=== PATIENT | male | born 1945 | race Caucasian/White ===

== ENCOUNTER 2017-03-02 02:53 | Inpatient (IN) | payer BC, MEDICARE, OTHER ==
[~2017-03-02] VITALS: Ht 177.8 cm; Wt 109.9 kg
--- NOTE | ~2017-03-02 | ECH ---
Transthoracic Echocardiography Report (TTE) Demographics Patient Name BRENT SEALS Date of Study 03/03/2017 Patient Number [id number] Visit Number [id number] Date of 1945 Room Number 302 Accession Number [id number] Gender Male Age 72 year(s) Referring Angie Deutsch MD Riding Double Cherri Cummings Physician RDCS Physician Interpreting Kathy Lentz MD Mission Manager Physician Supervising Ordering Physician Angie Deutsch MD, MD/MLP Nurse Stress Engineering Systems Analyst Conclusions Summary Technically adequate exam. The estimated left ventricular ejection fraction is 60%. Trivial tricuspid regurgitation by color Doppler. Normal pulmonary pressures. Procedure Type of Study TTE procedure:Echo Complete SF. Procedure Date Date: 03/03/2017 Start: 07:36 AM Technical Quality: Adequate visualization Indications:Pulmonary embolus, Coronary artery disease and Hypertension. Additional Indications:History of IN/stents Appropriate Use Criteria: 9 Height: 70 inches Weight: 238 pounds BSA: 2.25 m Rhythm: NSR HR: 85 bpm BP: 98/64 mmHg Allergies - Morphine. - Other:(Statins & A Reductase inhibitors). M-Mode/2D Measurements LV Diastolic Dimension: 4.59 cm LV Systolic Dimension: 2.48 cm LV Septum Diastolic: 1 cm LV PW Diastolic: 1.01 cm AO Root Dimension: 3.18 cm Cardiac Output: 5.42 l/min LA Dimension: 4.11 cm Cardiac Index: 2.41 l/min*m RV Diastolic Dimension: 3.48 cm LA volume index: 26 ml/m LVOT: 2.01 cm LVOT VTI: 20.11 cm RV Base: 4 cm LV Stroke volume: 63.78 ml RV Mid: 2.3 cm LV Stroke volume index: 28.35 ml/m TAPSE: 2.2 cm TDI-S': 18 cm/s Doppler Measurements AV Peak Velocity: 1.3 m/s MV Peak E-Wave: 0.77 m/s AV Peak Gradient: 6.76 mmHg MV Peak A-Wave: 0.6 m/s AV Mean Gradient: 3.68 mmHg MV E/A Ratio: 1.3 LVOT Peak Velocity: 1.22 m/s MV P1/2t: 52.1 msec AV Area (Continuity):3.13 cm MV Deceleration Time: 165.8 msec TR Velocity:2.71 m/s MV Area (PHT): 4.23 cm TR Gradient:29.38 mmHg PV Peak Velocity: 0.87 m/s Estimated RAP:3 mmHg PV Peak Gradient: 3.05 mmHg Estimated RVSP: 32 mmHg Estimated PASP: 32.38 mmHg E' Septal Velocity: 0.1 m/s A' Septal Velocity: 0.11 m/s E' Lateral Velocity: 0.14 m/s A' Lateral Velocity: 0.1 m/s RA Area: 17.48 cm Findings Left Ventricle Normal left ventricle size and function. Diastolic assessment reveals normal relaxation. Right Ventricle Normal right ventricle structure and function. Left Atrium Normal left atrial size. Right Atrium Normal right atrial size. Mitral Valve Normal mitral valve structure and function. Trivial mitral regurgitation by color Doppler. Aortic Valve The aortic valve is mildly sclerotic. Tricuspid Valve Normal tricuspid valve structure and function. Trivial tricuspid regurgitation by color Doppler. Normal pulmonary pressures. Pulmonic Valve Normal pulmonic valve structure and function. Trivial pulmonic valve regurgitation by color Doppler. Pericardial Effusion No evidence of pericardial effusion. Miscellaneous Visualized portions of the aortic root and ascending aorta appear normal in size. Pleural Effusion No evidence of pleural effusion. Signature
--- NOTE | 2017-03-02 07:06 | ER ---
ADMIT: 03/02/2017 RM/LOC: 302 [facility] MR#: [id number] [address] [facility] [address] [place], [place] [address] BRENT SEALS [address] [place] [address] Emergency Room Report SEX: M AGE: 72 : 1945 DATE: 03/02/2017 CHIEF COMPLAINT: Chest pain. HISTORY OF PRESENT ILLNESS: The patient is a 72-year-old male with coronary artery disease, status post right coronary artery bare metal stent in 2008, subsequent heart cath in 2014 showed patent stent and nonobstructive coronary artery disease. States he awoke with left chest discomfort associated with pleuritic cough. Denies any hemoptysis, fevers, chills, or previous DVT or PE. Does admit to right leg pain and swelling without injury. PAST MEDICAL HISTORY: ILLNESSES: Coronary artery disease, status post inferior wall LA in 2008, hypertension, hyperlipidemia, TIA, connective tissue disease. Followed by Dr. Levin. Dupuytren's contracture in the right hand, colon polyps. OPERATIONS: PCI and bare metal stent of right coronary artery in 2008, heart cath in 2014 showing patent stent, bilateral inguinal hernia x2, right Dupuytren's release, left hydrocelectomy, left ACL repair. ALLERGIES: MORPHINE, STATINS. MEDICATIONS: Please see nurse's MAR. SOCIAL HISTORY: . Past smoker, quit in 2008 with 41-pack year history. No illicit drugs or alcohol. FAMILY HISTORY: Premature coronary artery disease. No aneurysms, dissections or sudden syndrome. REVIEW OF SYSTEMS: Stress SPECT exam shows inferior hypokinesis with EF of 76% in September 2015. Otherwise, 12-point review of systems negative for all other systems, illnesses, or operations except as outlined above. PHYSICAL EXAMINATION: VITAL SIGNS: Temp 97.4, pulse 82, respirations 21, BP 104/60, SaO2 of 91%. GENERAL: Anxious, moderate distress, non-diaphoretic without jaundice or icterus. HEENT: Normocephalic. No evidence of epistaxis, rhinorrhea, or otorrhea. NECK: Supple without lymphadenopathy or thyromegaly. CHEST: Clear. Breath sounds equal. HEART: Regular rate and rhythm without murmur, gallop, or edema. ABDOMEN: Soft, nontender, nondistended without mass or megaly. Bowel sounds hypoactive. EXTREMITIES: Negative Homans sign. NEURO: EOMI, PERRLA. No evidence of drift, dysarthria, or ataxia. Gait not assessed. MENTAL STATUS: Alert, oriented, anxious without delusions, hallucinations, or abnormal thought content. MEDICAL DECISION MAKING: EKG on arrival showed sinus rhythm with low voltage, ADMIT: 03/02/2017 RM/LOC: 302 [facility] MR#: [id number] [address] [address] [place] [address] Emergency Room Report SEX: M AGE: 72 : 1945 unchanged from EKG of 10/25/2015. Chest x-ray negative. CTA chest shows bilateral pulmonary emboli. Normal CBC, CMP, except for potassium of 5.0 with moderate hemolysis. CK 206, MB 3.8, troponin less than 0.015. D-dimer 3.25, CRP 3.77. The patient was given on arrival aspirin and nitroglycerin with no change. GI cocktail, Protonix with marked improvement. Upon return from CT, the patient was then fully heparinized. Discussed the case with Dr. Adams and Dr. Reyes. Dr. Reyes gave orders to nursing staff. Due to the patient's presentation, findings, and intervention, 30 minutes of critical care is warranted. DIAGNOSES: 1. Atypical chest pain associated with known coronary artery disease, status post PCI and bare metal stent of right coronary artery in 2008, subsequent heart cath in 2014 shows patent stent. 2. Bilateral pulmonary emboli. 3. Mixed connective tissue disorder, followed by Dr. Levin. 4. Right leg pain, suspect deep vein thrombosis. RECOMMENDATION: Admit inpatient ICU for Dr. Arrednodo. ADMISSION CONDITION: Fair. Patient is a full code. Timur Miller MD/ luz JOB #: [id number] CC: Ketan Arredondo MD, Attending Physician Ketan Arredondo MD, Family Physician Ketan Arredondo MD
[2017-03-06] MEDS ORDERED: ASA CHILDREN'S81 MG PO (16:50)
[2017-03-06] MEDS ORDERED: HYDROCHLOROTHIA25 MG PO (16:51)
[2017-03-06] MEDS ORDERED: VITAMIN D31000 UNIT PO (16:51)
[2017-03-06] MEDS ORDERED: FOLVITE-DPS1 MG PO (16:51)
[2017-03-06] MEDS ORDERED: PRILOSEC DPS20 MG PO (16:52)
[2017-03-06] MEDS ORDERED: DELTASONE DPS1 MG PO (16:52)
[2017-03-06] MEDS ORDERED: AVAPRO DPS150 MG PO (16:52)
[2017-03-06] MEDS ORDERED: METHOTREXATE2.5 MG PO (16:52)
[2017-03-06] MEDS ORDERED: NEURONTIN DPS400 MG PO (16:53)
[2017-03-06] MEDS ORDERED: ZYLOPRIM-DPS300 MG PO (16:53)
[2017-03-06] MEDS ORDERED: ZETIA10 MG PO (16:53)
[2017-03-06] MEDS ORDERED: METOPROLOL TART25 MG PO (16:53)
[2017-03-06] MEDS ORDERED: ZYRTEC DPS10 MG PO (16:53)
[2017-03-06] MEDS ORDERED: NITROSTAT0.4 MG SL (16:54)
[2017-03-06] MEDS ORDERED: TYLENOL EXTRA500 M1 PO (16:54)
[2017-03-06] MEDS ORDERED: ELIQUIS5 MG PO (16:55)
--- NOTE | 2017-03-18 08:26 | DS ---
ADMIT: 03/02/2017 RM/LOC: 426 [facility] MR#: [id number] [id number] [place], [place] [address] BRENT SE[facility] [address] [place] [address] General Discharge Summary SEX: M AGE: 72 : 1945 ADMISSION DATE: 03/02/2017 DISCHARGE DATE: 03/05/2017 FINAL DIAGNOSES: 1. Acute bilateral pulmonary embolism. 2. Right lower extremity deep vein thrombosis. 3. Hypoxia, with acute mild respiratory failure secondary to pulmonary embolism. 4. Chest pain, pleuritic, secondary to pulmonary embolism. 5. Coronary artery disease, status post stent in 2003 and repeat stent in 2014, nonobstructive disease. 6. Mixed connective tissue disease. 7. Hypertension. 8. Hyperlipidemia. 9. Obesity. 10.History of gout. 11.History of transient ischemic attack. 12.Obstructive sleep apnea. CONSULTATIONS: None. LABS AND IMAGING: Please refer to hospital record. Briefly, CTA on March 02 showed bilateral pulmonary emboli and emphysema. Lower extremity Doppler on March 02 showed right leg DVT with nonocclusive thrombus within the right mid and distal superficial femoral vein. Echocardiogram on 03/03/2017 showed EF of 60% with trivial tricuspid regurgitation, normal pulmonary pressures. REASON FOR ADMISSION: Please refer to dictated H and P. Briefly, Brent is a very pleasant, 72-year-old male, presented to the Emergency Department with complaints of shortness of breath. Workup found the above findings. Therefore, he was admitted to the ICU for further workup and management. HOSPITAL COURSE: The patient was admitted to ICU. He was hemodynamically stable on admission. Started on heparin drip. He was requiring oxygen. Workup was found with the above. No inciting factors for this. He remained on heparin drip until the day of 03/05/2017 given the extent of PE's. There were no other major events during hospitalizations. He was feeling much less short of breath on day of discharge and less chest pain. He was still requiring a little bit of oxygen. He was qualified for this. He was transitioned to Eliquis. Discussed the risks, benefits, and alternatives for anticoagulation therapy ADMIT: 03/02/2017 RM/LOC: 426 [facility] MR#: [id number] [address] [facility] [address] [place] [address] BRENT SEALS [address] [place] [address] General Discharge Summary SEX: M AGE: 72 : 1945 and the patient was agreeable with Eliquis. He did understand increased bleeding risk. DISCHARGE MEDICATIONS: Please refer hospital record. Recommended to stop Plavix. Otherwise, we will start Eliquis and other home medications. DISCHARGE INSTRUCTIONS: The patient instructed to take medications as prescribed. Use oxygen. Follow up with his primary care provider at the end of the week. Likely only need oxygen for a week or two. Recommended if any worsening symptoms to call us. Discharge activities took approximately 35 minutes, 50% of which was [id number] Kerwin Bolden MD/ luz JOB #: [id number] CC: Ketan Arredondo MD, Attending Physician Ketan Arredondo MD, Family Physician
--- NOTE | 2017-03-30 16:24 | HP ---
ADMIT: 03/02/2017 RM/LOC: 302 [facility] MR#: [id number] [address] [facility] [address] [place], [place] [address] BRENT SE[facility] [address] [place] [address] History and Physical SEX: M AGE: 72 : 1945 DATE OF SERVICE: CHIEF COMPLAINT: Pleuritic chest pain. HISTORY OF PRESENT ILLNESS: The patient reports he was lying in bed when he developed sudden onset chest pain this evening. He reported that the sensation reminded him of his prior OR. He described the discomfort as a sharp pain in his chest without radiation that was worse with respirations. He reports a very intermittent cough and denies any sputum production or hemoptysis. He denies any shortness of breath, or increased work of breathing. CT in the ER was positive for bilateral pulmonary emboli. The patient has been hemodynamically stable since admission, though did have a little bit of softer blood pressures initially. He denies any calf pain, recent travel, known cancer, or personal history of blood clots. PAST MEDICAL HISTORY: Coronary artery disease, status post stent in 2003 and repeat stent in 2014 with nonobstructive disease; mixed connective tissue disease, on chronic prednisone and methotrexate; hypertension; hyperlipidemia; obesity; gout; history of TIA; and obstructive sleep apnea. PAST SURGICAL HISTORY: Bilateral inguinal hernia repair, left ACL, hydrocelectomy, great toe procedure, multiple cardiac catheterizations. MEDICATIONS: 1. Aspirin 81 mg p.o. daily. 2. Folic acid 3 mg p.o. daily. 3. Plavix 75 mg p.o. daily. 4. Hydrochlorothiazide 25 mg p.o. daily. 5. Vitamin D 2000 International Units p.o. daily. 6. Methotrexate 2.5 mg four tabs twice weekly. 7. Prilosec 40 mg p.o. daily. 8. Prednisone 3 mg p.o. daily. 9. Avapro 75 mg p.o. daily. 10.Allopurinol 600 mg p.o. daily. 11.Zyrtec 10 mg p.o. daily. 12.Gabapentin 400 mg t.i.d. 13.Metoprolol 25 mg p.o. b.i.d. 14.Zetia 10 mg p.o. daily. 15.Nitroglycerin p.r.n. 16.Tylenol 1 g p.o. daily. ALLERGIES: MORPHINE. FAMILY HISTORY: The patient reports that his father had his first OR at age 65. His mother had cancer. SOCIAL HISTORY: The patient is and lives in [place] with his . He has 5 children, 4 of whom are growing out of the home. 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 He has a prior tobacco history of ADMIT: 03/02/2017 RM/LOC: 302 [facility] MR#: [id number] [address] [address] [place] [address] History and Physical SEX: M AGE: 72 : 1945 41 pack years, quit in 2003. He reports occasional alcohol. REVIEW OF SYSTEMS: A 10-point review of systems was completed and negative except as noted in the HPI. PHYSICAL EXAMINATION: VITAL SIGNS: 97.8, 121/66, 65, 17, 97%. GENERAL: Awake, alert, oriented, in no acute distress, appears comfortable. HEENT: Head is normocephalic and atraumatic. Pupils are equal, round, and reactive to light. Extraocular muscles are intact. Mucous membranes are moist. NECK: Supple. Trachea is midline. Thyroid is not palpable. HEART: Regular rate and rhythm without murmur. No JVD appreciated. LUNGS: Clear to auscultation bilaterally with normal work of breathing. ABDOMEN: Obese, soft, nontender to palpation. Bowel sounds are present. EXTREMITIES: Without cyanosis, clubbing, or edema or any tenderness to palpation. NEURO: Grossly intact. PSYCH: Normal mood and affect. LAB AND DIAGNOSTIC DATA: WBC 8.7, hemoglobin 14.3, platelets 158, creatinine 1.1. D-dimer 3.25, CRP 3.77, CK 206, MB 3.8, troponin less than 0.015. CT with multiple pulmonary emboli. EKG normal sinus rhythm. Without evidence of strain. ASSESSMENT: 1. Pleuritic chest pain, secondary to bilateral pulmonary emboli. 2. Coronary artery disease, status post stent in 2003. 3. Mixed connective tissue disease, on chronic prednisone and methotrexate. 4. Hypertension. 5. Hyperlipidemia. 6. History of transient ischemic attack. ADMIT: 03/02/2017 RM/LOC: 302 [facility] MR#: [id number] [address] [address] [place] [address] History and Physical SEX: M AGE: 72 : 1945 7. Gout. PLAN: At this time, we will initiate a heparin drip for anticoagulation. The patient is hemodynamically stable, though he did have some soft blood pressures on presentation presumed secondary to the nitroglycerin administered. No obvious trigger for thrombus formation including no recent travel, known cancer or any calf pain. We will order bilateral lower extremity venous Doppler ultrasound to assess for deep vein thrombosis though do not suspect an obstructive or extensive clot as patient is asymptomatic. I suspect we will be able to transition patient to oral anticoagulation shortly. We will be cognizant as the patient is on chronic prednisone, but at this time, he has no signs of adrenal insufficiency and is on a less than physiologic dose daily. We will continue the patient's chronic home medications. Shaina Reyes MD Resident / Get Adams MD / luz JOB #: [id number] CC: Ketan Arredondo, Attending Physician Ketan Arredondo, Family Physician
== END 2017-03-05 12:05 | disposition home or self-care (01) | DRG 175 ==
LOC: ER 02:53 → 4PCU 04:32 → 3ICU 04:32 → 4PCU 03-04 20:43
PROVIDERS: ADMIT Family Medicine
DX: I26.99 Other pulmonary embolism without acute cor pulmonale (principal); J96.01 Acute respiratory failure with hypoxia; I82.411 Acute embolism and thrombosis of right femoral vein; M35.1 Other overlap syndromes; I10 Essential (primary) hypertension; I25.10 Atherosclerotic heart disease of native coronary artery without angina pectoris; I25.2 Old myocardial infarction; M10.9 Gout, unspecified; E66.9 Obesity, unspecified; Z68.34 Body mass index [BMI] 34.0-34.9, adult; G47.33 Obstructive sleep apnea (adult) (pediatric); E78.5 Hyperlipidemia, unspecified; Z86.73 Personal history of transient ischemic attack (TIA), and cerebral infarction without residual deficits; Z86.010 Personal history of colon polyps; Z87.891 Personal history of nicotine dependence; Z82.49 Family history of ischemic heart disease and other diseases of the circulatory system; Z95.5 Presence of coronary angioplasty implant and graft; Z79.82 Long term (current) use of aspirin; Z79.52 Long term (current) use of systemic steroids